=== PATIENT | male | born 1945 | race Caucasian/White ===

== ENCOUNTER 2017-05-12 06:43 | Emergency (ER) | payer MEDICARE, MEDICAID ==
--- NOTE | 2017-05-12 07:59 | RAD ---
INDICATION: Intracranial injury COMPARISON: CT brain March 21, 2015 TECHNIQUE: Noncontrast axial source images were acquired from the skull base to the vertex. FINDINGS: Ventricles/sulci: There is cortical atrophy with compensatory dilatation of the CSF spaces. Brain parenchyma: There is periventricular and subcortical white matter change compatible with chronic ischemia. Intracranial hemorrhage:None. Extra-axial spaces: There are no abnormal extra axial fluid collections or evidence of extra-axial mass. Calvarium: There is no calvarial fracture or other calvarial abnormality. Scalp: There is a left supraorbital scalp hematoma. Paranasal sinuses/mastoid: The paranasal sinuses and mastoid air cells are clear. Other: None. IMPRESSION: NO ACUTE INTRACRANIAL FINDINGS. LEFT SUPRAORBITAL SCALP HEMATOMA
[2017-05-12 10:30] VITALS: BP 154/69
--- NOTE | 2017-05-12 11:11 | ED ---
Jasmyn Vera Gabriel, scribed for Shayne Vidal MD on 05/12/17 at 0717 . Head Injury - HPI Summary HPI Summary: This patient is a 72 year old M BIBA to [facility] with a chief complaint of head injury s/p fall that occurred Thursday. pt came from [facility], and stated that pt fell sometime over the last week and fell sometime last night they think. Noted bruise to left side of head and around left eye. per EMS LEVEL 5 CAVEAT due to patient being severely demented. - History Of Current Complaint Chief Complaint: EDHeadInjury Stated Complaint: FALL, HEAD INJURY Time Seen by Provider: 05/12/17 07:07 Hx Obtained From: Patient - Patient provided very little history due to dementia , EMS Hx From Patient Unobtainable Due To: Dementia Mechanism Of Injury: Fall From Height Of: - unknown Onset/Duration: Traumatic, Still Present Pain Intensity: 0 Pain Scale Used: 0-10 Numeric Associated Signs And Symptoms: Bruising PMH/Surg Hx/FS Hx/Imm Hx Previously Healthy: No Neurological History: Reports: Hx Dementia Infectious Disease History: No Infectious Disease History: Denies: Traveled Outside the [place] in Last 30 Days - Social History Alcohol Use: None Alcohol Amount: former, no loner remembers. Substance Use Type: Reports: None Smoking Status (MU): Former Smoker - Additional Comments History Additional Comments: LEVEL 5 CAVEAT: A complete medical history could not be obtained due to patient' s dementia. Review of Systems - ROS Summary Review of Systems Summary: LEVEL 5 CAVEAT: A complete review of systems could not be obtained due to patient's dementia. Negative: Fever Positive: Bruising - On forehead Neurological: Other - Dementia All Other Systems Reviewed And Are Negative: Yes Physical Exam - Summary Physical Exam Summary: Appearance: Well-appearing Eyes: Normal, Conjunctiva clear ENT: Right tympanic membrane is scared and bulging. Head: Patient has a left periorbital hematoma and well as ecchymosis on the left side of his forehead Dental: Normal Neck: Supple, non-tender, no lymphadenopathy Lungs: Lungs clear, normal breath sounds, no respiratory distress, no accessory muscle use. Heart: RRR, no murmur, pulses normal. Abdomen: Nontender, soft. Musculoskeletal: Normal Neurological: Normal Psychiatric: Normal Skin: Normal Triage Information Reviewed: Yes Vital Signs On Initial Exam: Initial Vitals Temp Pulse Resp BP Pulse Ox 97.5 F 80 16 146/75 96 05/12/17 06:44 05/12/17 06:44 05/12/17 06:44 05/12/17 06:44 05/12/17 06:44 Vital Signs Reviewed: Yes - [place] Coma Scale Coma Scale Total: 11 Diagnostics - Vital Signs Vital Signs Temp Pulse Resp BP Pulse Ox 05/12/17 06:44 97.5 F 80 16 146/75 96 - Laboratory Lab Statement: Any lab studies that have been ordered have been reviewed, and results considered in the medical decision making process. - CT CT Brain CT Interpretation Completed By: Radiologist - NO ACUTE INTRACRANIAL FINDINGS. LEFT SUPRAORBITAL SCALP HEMATOMA. ED physician has reviewed this radiology report and agrees. Head Injury Course/Dx Course Of Treatment: Mr. Thompson fell on Thursday. He can't give me the details of what happened but has no real C/O at this time. He has a black eye and a bruise on his forehead. Brain CT was negative for any bleeding or orbital fracture. - Diagnoses Provider Diagnoses: Head injury Discharge - Discharge Plan Condition: Stable Disposition: HOME Patient Education Materials: Head Injury (ED) Referrals: No Primary Care Phys,NOPCP [Primary Care Provider] - Additional Instructions: Follow up with your PCP in three days. RETURN TO THE EMERGENCY DEPARTMENT FOR CHANGING OR WORSENING SYMPTOMS. The documentation as recorded by the Jasmyn espinoza Gabriel accurately reflects the service I personally performed and the decisions made by me, Shayne Vidal MD.
== END 2017-05-12 10:30 | disposition home or self-care (01) ==
LOC: ED 06:43
DX: S09.90XA Unspecified injury of head, initial encounter (principal); W19.XXXA Unspecified fall, initial encounter; Y93.9 Activity, unspecified; Y92.9 Unspecified place or not applicable; Z87.891 Personal history of nicotine dependence; Z81.8 Family history of other mental and behavioral disorders
CPT/HCPCS: 70450; 99282